=== PATIENT | female | born 1950 | race Caucasian/White ===

== ENCOUNTER 2017-03-04 05:47 | Day surgery (SDC) | payer MEDICARE, OTHER ==
[2017-02-26 10:23] LABS: HEMATOCRIT 45.7 % (36.0-48.0); HEMOGLOBIN 15.4 g/dL (12.0-16.0)
[2017-02-26 10:42] LABS: ALBUMIN 3.7 G/DL (3.5-5.0); ALKALINE PHOSPHATASE 93 U/L (45-117); BUN (BLOOD UREA NITROGEN) 10 MG/DL (6-23); CALCIUM, SERUM 8.9 MG/DL (8.5-10.4); CHLORIDE, SERUM 107 MMOL/L (96-112); CO2 (CARBON DIOXIDE) 29 MMOL/L (24-34); CREATININE 0.84 MG/DL (0.55-1.02); GFR AFRICAN AMERICAN 83 ML/MIN (>=60); GFR NON AFRICAN AMERICAN 72 ML/MIN (>=60); SGPT(ALT) 22 U/L (5-65); SODIUM, SERUM 142 MMOL/L (135-148); TOTAL BILIRUBIN 0.7 MG/DL (0-1.2); TOTAL PROTEIN 7.7 G/DL (6.0-8.5)
[2017-02-26 10:43] LABS: GLUCOSE, SERUM 206 MG/DL (60-99)
[2017-02-26 10:44] LABS: DIRECT BILIRUBIN < 0.1 MG/DL (0.0-0.4); INDIRECT BILIRUBIN(NOT ORDER) 0.6 MG/DL (0.1-0.9); POTASSIUM, SERUM 5.4 MMOL/L (3.5-5.3); SGOT(AST) 38 U/L (5-40)
[2017-02-26 11:31] LABS: ASCORBIC ACID (UR NOT ORDER) NEG (NEG); BILIRUBIN, URINE NEGATIVE (NEG); KETONE, URINE NEGATIVE (NEG); LEUKOCYTE ESTERASE(NOT OR NEG (NEG); WBC (NOT ORDERED) (RFLEX) 1 (0-5)
--- NOTE | ~2017-03-04 | OP ---
Record Of Operation [facility] [address] [place]. [address] NAME: SABINO FLORES : 48 STATUS : [facility]#: [id number] AGE: 66 ADM/REG DATE : 03/04/17 MR#: [id number] REPORT SERV DATE: 03/05/17 DICTATED BY: SONYA MATHIS DATE: 03/05/17 REPORT STATUS : Draft TRANSCRIBED BY: MODL DATE: 03/05/17 DATE OF PROCEDURE: 03/04/2017 TITLE OF OPERATION: Cystourethroscopy, left retrograde pyelogram, left ureteroscopy with laser lithotripsy and basket stone extraction, placement of 6 x 24 left ureteral stent with tether. PREOPERATIVE DIAGNOSIS: 1. Left renal stone. 2. Recurrent UTIs. 3. Gross hematuria. POSTOPERATIVE DIAGNOSIS: 1. Left renal stone. 2. Recurrent UTIs. 3. Gross hematuria. INDICATIONS: Ms. Flores is a 66-year-old female with a history of gross hematuria, recurrent UTIs, and a left renal stone. Postoperative managements have failed. She is here for stone treatment to help relieve these 3 conditions. ANESTHESIA: General. COMPLICATIONS: None. IMPLANT: 6 x 24 left ureteral stent with tether. SPECIMEN: Stones for analysis. NARRATIVE: The patient was brought to the operating room, identified by her wristband. General anesthesia was induced. Ancef was given for preoperative antibiotics. She was placed in the dorsal lithotomy position and prepped and draped in a sterile fashion. A cystoscope was placed into her urethra and into her bladder. The bladder was inspected. There were no abnormalities. A wire was placed into her distal ureter and a 5-Zambian open- ended catheter was placed over the wire into the distal ureter. Retrograde pyelogram was shot which showed a nondilated ureter and normal collecting system in the kidney. A flexible ureteroscope was then placed over the wire into the kidney with minimal difficulty. The kidney was inspected, one 6 mm stone was found in the lower pole calyx. Using a 200 micron holmium laser fiber and a 100-watt laser, the stone was dusted into numerous submillimeter pieces. There was approximately 2 pieces that are a millimeter in size. These were grasped with a 1.9 Nitinol basket and removed from the body. There were no other stones in the kidney. She will pass the small fragments spontaneously. The ureter was inspected. There was no stones or abnormalities. A Sensor wire was placed back up to the level of the upper pole calyx, 6 x 24 ureteral stent was placed under standard conditions. The proximal coil was in the renal pelvis. The distal coil was in the bladder. A tether was left. The bladder was drained. A tether was taped to the patient's suprapubic area. Record Of Operation [address] [place]. [address] NAME: SABINO FLORES : [birth year] STATUS : [facility] PAT#: [id number] AGE: 66 ADM/REG DATE : 03/04/17 MR#: [id number] REPORT SERV DATE: 03/05/17 DICTATED BY: SONYA MATHIS DATE: 03/05/17 REPORT STATUS : Draft TRANSCRIBED BY: DAVID DATE: 03/05/17 She will follow up on for stent removal. CLAUDIA/DAVID Sonya Mathis MD / [id number] CC: MD Russel Gilmore III, D.O.
[~2017-03-04 05:47] MED LIST: ASAB PO; CO Q-10100 MG PO; D 5000 PO; EXFORGE1 TA2 PO; FISH OIL1200 MG PO; GLUCOTROL5 PO; GLUCXL2.5 PO; JANUMET1 TA1 PO; LANTUS SC; LEVOTHROID25 MCG PO; PRAVACHOL40 MG PO; PROTONIX PO; RED YEAS1 PO; ZYRTEC ALLGY10 MG PO
[2017-03-07 20:58] LABS: STONE COMPOSITION TWO DNR (())
== END 2017-03-04 17:44 | disposition home or self-care (01) ==
LOC: SDC 05:47
PROVIDERS: Urology
PROC: 0TC08ZZ Extirpation of Matter from Right Kidney, Via Natural or Artificial Opening Endoscopic (ICD-10-PCS; 2017-03-04)
PROC: 0TF38ZZ Fragmentation in Right Kidney Pelvis, Via Natural or Artificial Opening Endoscopic (ICD-10-PCS; principal; 2017-03-04 07:45)
PROC: 0T768DZ Dilation of Right Ureter with Intraluminal Device, Via Natural or Artificial Opening Endoscopic (ICD-10-PCS; 2017-03-04 07:45)
DX: N20.0 Calculus of kidney (principal); N39.0 Urinary tract infection, site not specified; I10 Essential (primary) hypertension; E78.5 Hyperlipidemia, unspecified; E11.9 Type 2 diabetes mellitus without complications; E78.00 Pure hypercholesterolemia, unspecified; E03.9 Hypothyroidism, unspecified; K74.60 Unspecified cirrhosis of liver; K44.9 Diaphragmatic hernia without obstruction or gangrene; K21.9 Gastro-esophageal reflux disease without esophagitis; F17.210 Nicotine dependence, cigarettes, uncomplicated; M19.90 Unspecified osteoarthritis, unspecified site; G47.33 Obstructive sleep apnea (adult) (pediatric); L40.9 Psoriasis, unspecified; Z98.84 Bariatric surgery status; Z86.73 Personal history of transient ischemic attack (TIA), and cerebral infarction without residual deficits; Z79.4 Long term (current) use of insulin; Z79.82 Long term (current) use of aspirin; Z79.899 Other long term (current) drug therapy; Z96.1 Presence of intraocular lens; Z98.41 Cataract extraction status, right eye; Z98.42 Cataract extraction status, left eye; Z86.010 Personal history of colon polyps; Z90.710 Acquired absence of both cervix and uterus; Z90.89 Acquired absence of other organs; Z98.890 Other specified postprocedural states
CPT/HCPCS: 80048; 80076; 81001; 82365; 82962; 84132; 85014; 85018; 93005; A9270-GY; C1758; C2617; J0690; J2250; J2405; J2710; J3010; Q9967